=== PATIENT | female | born 1965 | race Caucasian/White ===

== ENCOUNTER 2022-12-02 12:35 | Emergency (ER) | payer BC ==
[2022-12-02] MEDS ORDERED: Propofol 200 MG/20 ML SDV IVPUSH ONE (12:41)
[2022-12-02] MEDS ORDERED: Lactated Ringers 1,000 ML IV SCH (12:45)
== END 2022-12-02 14:39 | disposition home or self-care (01) ==
LOC: JD.ED 12:35
DX: S82.832A Other fracture of upper and lower end of left fibula, initial encounter for closed fracture (principal); S92.142A Displaced dome fracture of left talus, initial encounter for closed fracture; S93.315A Dislocation of tarsal joint of left foot, initial encounter; W11.XXXA Fall on and from ladder, initial encounter
CPT/HCPCS: 27840; 73600-26-LT; 73600-LT; 73610-26-LT; 73610-LT; 96360; 99152; 99284; 99284-25; J2704; J7120